=== PATIENT | male | born 1945 | race Caucasian/White ===

== ENCOUNTER → 2020-05-19 16:05 | Outpatient (CLI) | payer MEDICARE, BC, SELFPAY ==
--- NOTE | 2020-05-19 16:08 | DI.MRI.S_ITS ---
PROCEDURE: MR SHOULDER RT WO CON INDICATIONS: Pain in right shoulder TECHNIQUE: Noncontrast oblique coronal T2 fast spin echo with fat saturation, oblique sagittal T1 spin echo and T2 fast spin echo with fat saturation, axial T1 spin echo and T2 fast spin echo with fat saturation through the shoulder. COMPARISON: None. FINDINGS: Image quality: Excellent. Rotator cuff: There is full-thickness rupture involving distal supraspinatus and infraspinatus at their insertions on humeral head with up to 4.4 cm medial retraction of torn tendon fibers to the level of glenoid. Most anterior fibers of distal supraspinatus remains intact extending along its expected course. Distal subscapularis tendinosis is seen. Sagittal images demonstrate no significant muscle atrophy. Bones and bursae: No bone marrow contusions or fractures. Moderate acromioclavicular joint and glenohumeral joint osteoarthritic changes are seen . There is moderate amount of subacromial subdeltoid bursal fluid. Capsule and soft tissues: In the absence of intra-articular contrast, there is suggestion of superior anterior labral tear at 12 to 2 o'clock position and anterior-inferior labral tear at 5 to 6 o'clock position. The glenohumeral ligaments appear intact. The long head of the biceps tendinosis and low-grade intrasubstance partial-thickness tear is noted. The rotator interval appears normal, without fibrosis. The coracohumeral ligament is normal in thickness. IMPRESSION: 1. Full-thickness rupture of distal supraspinatus and infraspinatus at their insertions on humeral head with up to 4.4 cm medial retraction of torn tendon fibers to the level of glenoid. Few strands of intact fiber are noted in most anterior portion of distal supraspinatus. Distal subscapularis tendinosis. No muscle atrophy. 2. Moderate acromioclavicular joint and glenohumeral joint osteoarthritis. Moderate amount of joint effusion and subacromial subdeltoid bursal fluid. 3. Suggestion of superior anterior labral tear at 12 to 2 o'clock position and anterior-inferior labral tear at 5 to 6 o'clock position. 4. Proximal intra-articular portion of long head of biceps tendinosis and low-grade intrasubstance partial-thickness tear. Dictated by: Asif More M.D. on 05/19/2020 at 16:51 Approved by: Asif More M.D. on 05/19/2020 at 17:10
== END ==
PROVIDERS: Family Provider Family Medicine; PCP Internal Medicine; Referring Provider Internal Medicine; Visit Provider Internal Medicine
DX: M25.511 Pain in right shoulder (principal); M75.121 Complete rotator cuff tear or rupture of right shoulder, not specified as traumatic; M19.011 Primary osteoarthritis, right shoulder; S46.111A Strain of muscle, fascia and tendon of long head of biceps, right arm, initial encounter
CPT/HCPCS: 73221